=== PATIENT | female | born 1980 | race Caucasian/White ===

== ENCOUNTER 2019-04-09 23:35 | Emergency (ER) | payer OTHER ==
[2019-04-09 23:59] LABS: PLATELET COUNT 219 10^3/uL (150-400)
--- NOTE | 2019-04-10 00:14 | EDPHY ---
H & P Stated Complaint: 11wks , bleeding, Time Seen by Provider: 04/09/19 23:44 HPI/ROS: HPI The patient presents with vaginal bleeding which began about 20 min ago and is described as a gush of bright red blood which did not continue. She currently does not have any vaginal bleeding. She does have mild left-sided abdominal cramping. She is approximately 11 weeks by last menstrual period. She had a twin gestational and had intrauterine demise of a single twin at 8 weeks. She has been feeling well lately though does report she was tired today. She is followed by [facility], Dr. Barrett. REVIEW OF SYSTEMS 10 systems were reviewed and negative with the exception of the elements mentioned in the history of present illness. PMHx: Hypothyroidism Soc Hx: Here with her partner PHYSICAL General Appearance: Alert, tearful Eyes: Pupils equal and round no pallor or injection ENT, Mouth: Mucous membranes moist Respiratory: There are no retractions, lungs are clear to auscultation Cardiovascular: Regular rate and rhythm Gastrointestinal: Abdomen is soft and gravid, nontender, no masses, bowel sounds normal Neurological: A&O, moves all extremities Skin: Warm and dry, no rashes Musculoskeletal: Neck is supple non tender Extremities: symmetrical, full range of motion Psychiatric: Patient is oriented X 3, there is no agitation Source: Patient Exam Limitations: No limitations - Personal History LMP (Females 10-55): Current Tetanus Diphtheria and Acellular Pertussis (TDAP): Yes - Medical/Surgical History Hx Asthma: No Hx Chronic Respiratory Disease: No Hx Diabetes: No Hx Cardiac Disease: No Hx Renal Disease: No Hx Cirrhosis: No Hx Alcoholism: No Hx HIV/AIDS: No Hx Splenectomy or Spleen Trauma: No Other PMH: Hypothyroid - Social History Smoking Status: Never smoked Constitutional: Initial Vital Signs Temperature (C) 36.7 C 04/09/19 23:36 Heart Rate 78 04/09/19 23:36 Respiratory Rate 17 04/09/19 23:36 Blood Pressure 136/86 H 04/09/19 23:36 O2 Sat (%) 97 04/09/19 23:36 O2 Delivery Mode Room Air Allergies/Adverse Reactions: Sulfa (Sulfonamide Antibiotics) Allergy (Verified 04/09/19 23:39) Home Medications: Medication Instructions Recorded Synthroid 100 mcg (*) 04/09/19 Medical Decision Making - Diagnostics Imaging Results: First trimester pelvic ultrasound demonstrates 11 week live IUP with heart tones, subchorionic hematoma measuring 2.6 x 2.3 x 3.4 cm, interpreted by direct Radiology. Differential Diagnosis: This is a 39-year-old at approximately 11 weeks gestational age by last menstrual period with known intrauterine demise of single twin at 8 weeks , who now presents with vaginal bleeding. She is hemodynamically stable, bleeding has subsided, she does not have any symptoms currently. I performed a bedside ultrasound and I do see heart tones present though there is some intrauterine bleeding. Because of this I will obtain a formal ultrasound and consult OBGYN. I will check Rh status and CBC as well. Patient was Rh positive, CBC was normal, UA did show bacteria without clear signs of UTI. On reassessment, the patient had no ongoing bleeding in the emergency department. Pelvic ultrasound revealed live IUP with subchorionic hematoma. Case discussed with on-call OBGYN Dr. Terry. Recommend close outpatient follow-up and his clinic will contact the patient to arrange for this. We discussed the patient's UA given she has bacteriuria. He recommends sending a urine culture which I have done and holding antibiotics for now. - Data Points Laboratory Results: Laboratory Results 04/09/19 23:48 04/10/19 04/09/19 04/09/19 00:13 23:48 23:48 WBC 7.81 10^3/uL 10^3/uL (3.80-9.50) RBC 4.58 10^6/uL 10^6/uL (4.18-5.33) Hgb 14.9 g/dL g/dL (12.6-16.3) Hct 42.4 % % (38.0-47.0) MCV 92.6 fL fL (81.5-99.8) MCH 32.5 pg pg (27.9-34.1) MCHC 35.1 g/dL g/dL (32.4-36.7) RDW 12.1 % % (11.5-15.2) Plt Count 219 10^3/uL 10^3/uL (150-400) MPV 10.6 fL fL (8.7-11.7) Neut % (Auto) 60.7 % % (39.3-74.2) Lymph % (Auto) 29.7 % % (15.0-45.0) [place] % (Auto) 7.3 % % (4.5-13.0) Eos % (Auto) 1.5 % % (0.6-7.6) Baso % (Auto) 0.5 % % (0.3-1.7) Nucleat RBC Rel Count 0.0 % % (0.0-0.2) Absolute Neuts (auto) 4.74 10^3/uL 10^3/uL (1.70-6.50) Absolute Lymphs (auto) 2.32 10^3/uL 10^3/uL (1.00-3.00) Absolute Monos (auto) 0.57 10^3/uL 10^3/uL (0.30-0.80) Absolute Eos (auto) 0.12 10^3/uL 10^3/uL (0.03-0.40) Absolute Basos (auto) 0.04 10^3/uL 10^3/uL (0.02-0.10) Absolute Nucleated RBC 0.00 10^3/uL 10^3/uL (0-0.01) Immature Gran % 0.3 % % (0.0-1.1) Immature Gran # 0.02 10^3/uL 10^3/uL (0.00-0.10) Beta HCG, Quant Urine Color YELLOW Urine Appearance HAZY Urine pH 7.0 (5.0-7.5) Ur Specific [place] 1.002 (1.002-1.030) Urine Protein NEGATIVE (NEGATIVE) Urine Ketones NEGATIVE (NEGATIVE) Urine Blood 3+ H (NEGATIVE) Urine Nitrate NEGATIVE (NEGATIVE) Urine Bilirubin NEGATIVE (NEGATIVE) Urine Urobilinogen NEGATIVE EU EU (0.2-1.0) Ur Leukocyte Esterase NEGATIVE (NEGATIVE) Urine RBC 5-10 /hpf H /hpf (0-3) Urine WBC 3-5 /hpf H /hpf (0-3) Ur Epithelial Cells TRACE /lpf /lpf (NONE-1+) Urine Bacteria 3+ /hpf H /hpf (NONE SEEN) Urine Glucose NEGATIVE (NEGATIVE) Patient ABO/Rh O POSITIVE 04/09/19 23:48 WBC RBC Hgb Hct MCV MCH MCHC RDW Plt Count MPV Neut % (Auto) Lymph % (Auto) [place] % (Auto) Eos % (Auto) Baso % (Auto) Nucleat RBC Rel Count Absolute Neuts (auto) Absolute Lymphs (auto) Absolute Monos (auto) Absolute Eos (auto) Absolute Basos (auto) Absolute Nucleated RBC Immature Gran % Immature Gran # Beta HCG, Quant 953615.00 mIU/mL H mIU/mL (0.00-4.83) Urine Color Urine Appearance Urine pH Ur Specific [place] Urine Protein Urine Ketones Urine Blood Urine Nitrate Urine Bilirubin Urine Urobilinogen Ur Leukocyte Esterase Urine RBC Urine WBC Ur Epithelial Cells Urine Bacteria Urine Glucose Patient ABO/Rh Departure - Departure Disposition: Home, Routine, Self-Care Clinical Impression: Vaginal bleeding affecting early Condition: Good Instructions: Subchorionic Hemorrhage (ED) Additional Instructions: Please return to the emergency department if your worse in any way. Referrals: Cortney Barrett MD [Medical Doctor] - As per Instructions
[2019-04-10 01:35] VITALS: BP 110/67
== END 2019-04-10 01:35 | disposition home or self-care (01) ==
DX: O26.851 Spotting complicating pregnancy, first trimester (principal); O99.280 Endocrine, nutritional and metabolic diseases complicating pregnancy, unspecified trimester; Z3A.11 11 weeks gestation of pregnancy

== ENCOUNTER 2019-04-17 20:11 | Emergency (ER) | payer OTHER ==
--- NOTE | 2019-04-17 20:29 | EDPHY ---
H & P Stated Complaint: 12 CWKS PRECG VAG BLEEDING, L SIDE PAIN Time Seen by Provider: 04/17/19 20:21 HPI/ROS: CHIEF COMPLAINT: Vaginal bleeding, currently 12 weeks HISTORY OF PRESENT ILLNESS: 39-year-old female currently 12 weeks , initially seen the ER 8 days ago for complaint of vaginal bleeding. At that time she was found to have a subchorionic hemorrhage and has remained asymptomatic for the past several days with no vaginal bleeding or abdominal pain. This evening he was receiving acupuncture and noticed vaginal bleeding as well as left lower quadrant abdominal cramping. During this she had a twin gestation and had intrauterine demise of a single twin at 8 weeks. REVIEW OF SYSTEMS: 10 systems reviewed and negative with the exception of the elements mentioned in the history of present illness PAST MEDICAL & SURGICAL HISTORY: SOCIAL HISTORY: Nonsmoker PHYSICAL EXAM (Prior to examination, patient consented to physical exam, hands were washed and my usual and customary physical exam procedures followed) 1) GENERAL: Well-developed, well-nourished, alert and oriented. Appears anxious , crying 2) HEAD: Normocephalic, atraumatic 3) HEENT: Pupils equal, round, reactive to light bilaterally. Sclera anicteric. 4) NECK: Full range of motion, no meningeal signs. 5) LUNGS: Clear auscultation bilaterally, no wheezes, no rhonchi, no retractions. 6) HEART: Regular rate and rhythm, no murmur, no heave, no gallop. 7) ABDOMEN: No guarding, tender to palpation left lower quadrant, negative peritoneal sign, 8) MUSCULOSKELETAL: Moving all extremities, no focal areas of tenderness, no obvious trauma. No peripheral edema or discoloration. 9) BACK: No CVA tenderness, no midline vertebral tenderness, no fluctuance, no step-off, no obvious trauma, no visual or palpable abnormality. 10) SKIN: No rash, no petechiae. 11) Psychiatric: Patient is oriented X 3, there is no agitation. DIFFERENTIAL DIAGNOSIS: In no particular order including but not limited to demise, threatened , spontaneous , complete , subchorionic hemorrhage - Personal History LMP (Females 10-55): EDC: 10/27/19 Current Tetanus/Diphtheria Vaccine: Yes Current Tetanus Diphtheria and Acellular Pertussis (TDAP): Yes - Medical/Surgical History Hx Asthma: No Hx Chronic Respiratory Disease: No Hx Diabetes: No Hx Cardiac Disease: No Hx Renal Disease: No Hx Cirrhosis: No Hx Alcoholism: No Hx HIV/AIDS: No Hx Splenectomy or Spleen Trauma: No Other PMH: Hypothyroid - Social History Smoking Status: Never smoked Constitutional: Initial Vital Signs Temperature (C) 36.8 C 04/17/19 20:19 Heart Rate 90 04/17/19 20:19 Respiratory Rate 18 04/17/19 20:19 Blood Pressure 130/88 H 04/17/19 20:19 O2 Sat (%) 95 04/17/19 20:19 Allergies/Adverse Reactions: Sulfa (Sulfonamide Antibiotics) Allergy (Verified 04/17/19 20:20) Home Medications: Medication Instructions Recorded Synthroid 100 mcg (*) 04/09/19 Vit27&Calcium/Iron/FA 1 each PO DAILY 04/17/19 [ Rx 1 Tablet (RX)] Medical Decision Making - Diagnostics Imaging Results: Imaging Impressions Obstetrics Ultrasound 04/17/19 20:52 Impression: 1. Single live intrauterine gestation with estimated age by ultrasound of 12 weeks 3 days with an estimated delivery date of number 18/08/2019. 2. A subchorionic hemorrhage has increased in size measuring 4.6 x 4.6 x 5.5 cm. 3. See above report for additional findings. Results called and discussed with Moise BROWER on 04/17/2019 at 22:35. ED Course/Re-evaluation: 8:28 p.m.: Reviewed the patient's old medical records from last emergency department visit. At that time she had Rh status checked and she is Rh positive. Will repeat laboratory studies and repeat pelvic ultrasound. Care of patient under supervision of secondary supervising physician Dr Roberto Boudreaux . 10:57 p.m.: Phone consultation with the patient's OBGYN Dr Terry. I discussed the enlarging subchorionic hemorrhage. Today is Wednesday. The patient already has an appointment on Wednesday in the office. recommended keep this appointment. We discussed pelvic rest. Patient is also noted to have bacteriuria, similar to last emergency department visit at which point her cultures are positive for skin estelle. Discussed this with Dr. Lynn where he recommended holding on antibiotics at this time. I discussed plan with the patient she feels comfortable being discharged. She notes that her bleeding has now stopped. Patient feels comfortable being discharged. All questions and concerns addressed by myself. Patient given my usual and customary discharge precautions and instructions regarding their clinical impression. - Data Points Laboratory Results: Laboratory Results 04/17/19 20:45 04/17/19 20:45 04/17/19 04/17/19 04/17/19 21:00 20:45 20:45 WBC 8.69 10^3/uL 10^3/uL (3.80-9.50) RBC 4.54 10^6/uL 10^6/uL (4.18-5.33) Hgb 14.9 g/dL g/dL (12.6-16.3) Hct 42.6 % % (38.0-47.0) MCV 93.8 fL fL (81.5-99.8) MCH 32.8 pg pg (27.9-34.1) MCHC 35.0 g/dL g/dL (32.4-36.7) RDW 11.7 % % (11.5-15.2) Plt Count 227 10^3/uL 10^3/uL (150-400) MPV 10.7 fL fL (8.7-11.7) Neut % (Auto) 60.5 % % (39.3-74.2) Lymph % (Auto) 31.3 % % (15.0-45.0) [place] % (Auto) 6.3 % % (4.5-13.0) Eos % (Auto) 1.3 % % (0.6-7.6) Baso % (Auto) 0.5 % % (0.3-1.7) Nucleat RBC Rel Count 0.0 % % (0.0-0.2) Absolute Neuts (auto) 5.26 10^3/uL 10^3/uL (1.70-6.50) Absolute Lymphs (auto) 2.72 10^3/uL 10^3/uL (1.00-3.00) Absolute Monos (auto) 0.55 10^3/uL 10^3/uL (0.30-0.80) Absolute Eos (auto) 0.11 10^3/uL 10^3/uL (0.03-0.40) Absolute Basos (auto) 0.04 10^3/uL 10^3/uL (0.02-0.10) Absolute Nucleated RBC 0.00 10^3/uL 10^3/uL (0-0.01) Immature Gran % 0.1 % % (0.0-1.1) Immature Gran # 0.01 10^3/uL 10^3/uL (0.00-0.10) Sodium 133 mEq/L L mEq/L (135-145) Potassium 3.9 mEq/L mEq/L (3.5-5.2) Chloride 101 mEq/L mEq/L (97-110) Carbon Dioxide 21 mEq/l L mEq/l (22-31) Anion Gap 11 mEq/L mEq/L (6-14) BUN 14 mg/dL mg/dL (7-23) Creatinine 0.7 mg/dL mg/dL (0.6-1.0) Estimated GFR > 60 Glucose 89 mg/dL mg/dL (70-100) Calcium 10.0 mg/dL mg/dL (8.5-10.4) Beta HCG, Quant 553039.00 mIU/mL H mIU/mL (0.00-4.83) Urine Color RED Urine Appearance HAZY Urine pH 8.0 H (5.0-7.5) Ur Specific [place] 1.010 (1.002-1.030) Urine Protein 2+ H (NEGATIVE) Urine Ketones NEGATIVE (NEGATIVE) Urine Blood 3+ H (NEGATIVE) Urine Nitrate NEGATIVE (NEGATIVE) Urine Bilirubin NEGATIVE (NEGATIVE) Urine Urobilinogen NEGATIVE EU EU (0.2-1.0) Ur Leukocyte Esterase NEGATIVE (NEGATIVE) Urine RBC 50-182 /hpf H /hpf (0-3) Urine WBC 3-5 /hpf H /hpf (0-3) Ur Epithelial Cells TRACE /lpf /lpf (NONE-1+) Urine Bacteria 1+ /hpf H /hpf (NONE SEEN) Urine Mucus TRACE /lpf /lpf (NONE-1+) Urine Glucose 1+ H (NEGATIVE) Departure - Departure Disposition: Home, Routine, Self-Care Clinical Impression: Subchorionic hemorrhage Qualifiers: Fetus number: single or unspecified fetus Trimester: first trimester Qualified Code(s): O41.8X10 - Other specified disorders of amniotic fluid and membranes, first trimester, not applicable or unspecified; O46.8X1 - Other antepartum hemorrhage, first trimester; O46.8X1 - Other antepartum hemorrhage, first trimester Condition: Good Instructions: Threatened Miscarriage (ED) Additional Instructions: Recommend pelvic rest, no sexual intercourse, no heavy lifting, no exertional physical activity Referrals: Garry Terry MD [Medical Doctor] - 04/19/19
[2019-04-17 21:10] LABS: PLATELET COUNT 227 10^3/uL (150-400)
[2019-04-17 23:13] VITALS: BP 100/67
== END 2019-04-17 23:12 | disposition home or self-care (01) ==
DX: O20.8 Other hemorrhage in early pregnancy (principal); O41.8X10 Other specified disorders of amniotic fluid and membranes, first trimester, not applicable or unspecified; Z3A.12 12 weeks gestation of pregnancy

== ENCOUNTER → 2019-05-25 | Outpatient (CLI) | payer OTHER | LOC: FIMAGING 09:34 ==